=== PATIENT | male | born 1995 | race Caucasian/White ===

== ENCOUNTER 2017-04-15 20:10 | Emergency (ER) | payer OTHER ==
[2017-04-15 20:21] VITALS: BP 158/90; PULSE 79; RESP 14; TEMP 97.7; O2SAT 96
--- NOTE | 2017-04-15 20:25 | EDPHY ---
H & P Stated Complaint: L inner thight redness, irritation, pain x 3 days. HPI/ROS: HPI CHIEF COMPLAINT: Left inner thigh redness and pain x3 days. HISTORY OF PRESENT ILLNESS: This patient otherwise healthy 21-year-old male with no significant medical history does not take any daily medications no allergies, is nondiabetic he presents emergency room with left inner thigh redness, warmth and pain. Tells me over the last 3 days there was a little boil. Did pop himself and got some blood and pus out of it. Continue have some redness and warmth and pain in the inner thigh. No fever. Presented to the emergency room for evaluation. Of note on the inner left thigh there is an area of 10 cm of cellulitis. With a central area where there appears to be a recently popped Boil. Past Medical History: Denies medical history Past Surgical History: No recent surgical history Social History: Denies daily use of drugs alcohol tobacco products Family History: Noncontributory ROS REVIEW OF SYSTEMS: A comprehensive 10 point review of systems is otherwise negative aside from elements mentioned in the history of present illness. Exam Constitutional triage nursing summary reviewed, vital signs reviewed, awake/ alert. Eyes normal conjunctivae and sclera, EOMI, PERRLA. HENT normal inspection, atraumatic, moist mucus membranes, no epistaxis, neck supple/ no meningismus, no raccoon eyes. Respiratory clear to auscultation bilaterally, normal breath sounds, no respiratory distress, no wheezing. Cardiovascular rate normal, regular rhythm, no murmur, no edema, distal pulses normal. Gastrointestinal soft, non-tender, no rebound, no guarding, normal bowel sounds, no distension, no pulsatile mass. Genitourinary no CVA tenderness. Musculoskeletal no midline vertebral tenderness, full range of motion, no calf swelling, no tenderness of extremities, no meningismus, good pulses, neurovascularly intact. Skin left inner thigh, area of redness 10 cm. Central area dark area of a boil. Recently popped. No fluctuance. No significant induration. No drainage at this time. There is warmth present. There is been outlined. No no crepitus Neurologic awake, alert and oriented x 3, AAOx3, moves all 4 extremities equally, motor intact, sensory intact, CN II-XII intact, normal cerebellar, normal vision, normal speech. Psychiatric normal mood/affect. Heme/Lymph/Immune no lymphadenopathy. Differential Diagnosis: Includes but is not limited to in a particular order, left thigh cellulitis, left thigh small abscess. Strep infection, MRSA infection. Medical Decision Making: Plan for this patient recommend warm compresses 3 to 5 times a day. Do not stick anything in his wound. The wound has been outlined. Take Keflex and Bactrim as prescribed. Return emergency room if there is any worsening swelling, pain, redness, streaking, fever. Or he feels that this is getting worse. He understands this. He understands the even doing warm compresses and take antibiotics there is a chance that the make it worsening may need further medical attention he does understand to watch out for worsening symptoms return to the ER if he sees these. Source: Patient - Personal History Current Tetanus Diphtheria and Acellular Pertussis (TDAP): Unsure - Medical/Surgical History Hx Asthma: No Hx Chronic Respiratory Disease: No Hx Diabetes: No Hx Cardiac Disease: No Hx Renal Disease: No Hx Cirrhosis: No Hx Alcoholism: No Hx HIV/AIDS: No Hx Splenectomy or Spleen Trauma: No Other PMH: collar bone surgery - Social History Smoking Status: Never smoked Constitutional: Initial Vital Signs Temperature (C) 36.5 C 04/15/17 20:19 Heart Rate 79 04/15/17 20:19 Respiratory Rate 14 04/15/17 20:19 Blood Pressure 158/90 H 04/15/17 20:19 O2 Sat (%) 96 04/15/17 20:19 O2 Delivery Mode Room Air Allergies/Adverse Reactions: No Known Allergies Allergy (Unverified 08/01/15 19:22) Home Medications: Medication Instructions Recorded Cephalexin [Keflex] 500 mg PO Q6H #28 cap 04/15/17 Sulfamethox/Tmp 800/160 mg 1 tab PO BID #14 tab 04/15/17 [Bactrim Ds] Departure - Departure Disposition: Home, Routine, Self-Care Clinical Impression: Cellulitis Qualifiers: Site of cellulitis: extremity Site of cellulitis of extremity: lower extremity Laterality: left Qualified Code(s): L03.116 - Cellulitis of left lower limb Condition: Good Instructions: Cellulitis (ED) Additional Instructions: 1. Do warm compresses to her inner thigh 3 to 5 times a day. 2. Take antibiotics as prescribed. Take it with food. 3. If the redness gets worse or swelling gets worse or you develops a fever worsening pain return to the emergency room. Referrals: Dann Silva MD [Primary Care Provider] - As per Instructions Prescriptions: Cephalexin [Keflex] 500 mg PO Q6H #28 cap Sulfamethox/Tmp 800/160 mg [Bactrim Ds] 1 tab PO BID #14 tab
[2017-04-15] MEDS ORDERED: SULFAMETHOX/TMP 800/160 MG 1 TAB PO ONE (20:29)
[2017-04-15] MEDS ORDERED: CEPHALEXIN 500 MG CAP PO ONE (20:29)
[2017-04-15] MEDS ORDERED: CEPHALEXIN 500MG PREPACK#4 BTL TAKEHOME ONE (20:29)
== END 2017-04-15 20:50 | disposition home or self-care (01) ==
LOC: CED 20:10
DX: L03.116 Cellulitis of left lower limb (principal)